=== PATIENT | female | born 1955 | race Two or more races ===

== ENCOUNTER 2017-12-24 09:12 | Emergency (ER) | payer OTHER, MEDICAID ==
[~2017-12-24] VITALS: Ht 152.4 cm; Wt 69.4 kg
[2017-12-24 09:19] VITALS: BP 155/86; Ht 152.4 cm; Wt 69.4 kg
== END 2017-12-24 10:47 | disposition home or self-care (01) ==
LOC: ED 09:12
DX: T78.49XA Other allergy, initial encounter (principal); F03.90 Unspecified dementia, unspecified severity, without behavioral disturbance, psychotic disturbance, mood disturbance, and anxiety; F20.9 Schizophrenia, unspecified; F31.9 Bipolar disorder, unspecified; Z98.890 Other specified postprocedural states; Z88.0 Allergy status to penicillin; X58.XXXA Exposure to other specified factors, initial encounter
CPT/HCPCS: Q0163

== ENCOUNTER 2018-02-08 13:57 | Emergency (ER) | payer OTHER, MEDICAID ==
[~2018-02-08] VITALS: Ht 152.4 cm; Wt 66.7 kg
[2018-02-08 14:06] VITALS: Ht 152.4 cm; Wt 66.7 kg
[2018-02-08 14:23] LABS: BASOPHIL % 1.2 % (0-2); PLATELET COUNT 208 x10^3mcL (130-400); RED CELL DISTRIBUTION WIDTH 14.4 % (11.5-14.5)
[2018-02-08 14:26] LABS: CALCIUM 8.5 mg/dL (8.5-10.1); CARBON DIOXIDE 28.7 mmol/L (21-32); CREATININE SERUM 1.2 mg/dL (0.6-1.0); POTASSIUM SERUM 4.5 mmol/L (3.5-5.1)
[2018-02-08 14:31] LABS: ALBUMIN 3.6 g/dL (3.4-5.0); BILIRUBIN TOTAL 0.3 mg/dL (0.20-1.00); TOTAL PROTEIN, SERUM 6.9 g/dL (6.4-8.2)
[2018-02-08 17:21] VITALS: BP 115/74
== END 2018-02-08 17:21 | disposition home or self-care (01) ==
LOC: ED 13:57
PROVIDERS: Emergency Medicine
DX: F41.1 Generalized anxiety disorder (principal); R07.89 Other chest pain
CPT/HCPCS: J2060; Q0092

== ENCOUNTER 2018-02-09 11:13 | Emergency (ER) | payer OTHER, MEDICAID ==
[~2018-02-09] VITALS: Ht 152.4 cm; Wt 66.7 kg
[2018-02-09 11:17] VITALS: Ht 152.4 cm; Wt 66.7 kg
[2018-02-09 13:21] VITALS: BP 122/74
== END 2018-02-09 13:21 | disposition home or self-care (01) ==
LOC: ED 11:13
DX: F43.22 Adjustment disorder with anxiety (principal); R07.89 Other chest pain; J45.909 Unspecified asthma, uncomplicated; F31.9 Bipolar disorder, unspecified; Z88.0 Allergy status to penicillin; Z98.890 Other specified postprocedural states
CPT/HCPCS: J2060; Q0092